=== PATIENT | male | born 2000 | race Two or more races ===

== ENCOUNTER → 2022-04-14 | Emergency (ER) | payer OTHER ==
[~2022-04-14] VITALS: Ht 175.3 cm; Wt 55.8 kg
[~2022-04-14] MED LIST: MIRALAX17 GM PO
== END | disposition home or self-care (01) ==
LOC: ER 17:45 → EMR PED 17:54
DX: I88.0 Nonspecific mesenteric lymphadenitis (principal); Z20.822 Contact with and (suspected) exposure to COVID-19

== ENCOUNTER 2024-05-17 19:31 | Emergency (ER) | payer OTHER ==
[~2024-05-17] VITALS: Ht 160 cm; Wt 63.5 kg
[2024-05-17 19:34] VITALS: BP 112/78; O2SAT 99
[2024-05-17] MEDS ORDERED: CEFTRIAXONE SODIUM 1,000 MG VIAL IM STA (20:16)
[2024-05-17] MEDS ORDERED: CEFTRIAXONE SODIUM 1,000 MG VIAL ONE (20:25)
== END 2024-05-17 20:35 | disposition home or self-care (01) ==
LOC: ER 19:33
DX: R05.9 Cough, unspecified (principal)